=== PATIENT | female | born 1940 | race Caucasian/White ===

== ENCOUNTER 2019-03-26 16:55 | Inpatient (IN) ==
[2019-03-26] MEDS ORDERED: *HR* OxyCODONE/APAP 5/325 TABLET PO ONE (17:17)
[2019-03-26] MEDS ORDERED: 0.9 % Sodium Chloride 1,000 ML IVC SCH (18:30)
[2019-03-26 19:17] LABS: Bilirubin,Urine Negative (Negative); Blood,Urine Negative (Negative); Clarity,Urine Clear (Clear); Color,Urine Yellow (Yellow); Glucose,Urine (UA) Normal (Normal); Ketones,Urine Trace mg/dL (Negative); Leukocyte Esterase,Urine Negative (Negative); Nitrite,Urine Negative (Negative); PH,Urine 6.5 pH Units (5.0-8.0); Protein,Urine Negative (Neg-Trace); Specific Gravity,Urine 1.016 (1.010-1.025); Urobilinogen,Urine Normal (Normal)
[2019-03-26 19:19] LABS: Basophils # 0.1 K/mcL (0.0-0.2); Basophils % 0.6 %; Eosinophils # 0.1 K/mcL (0.0-0.6); Eosinophils % 0.5 %; Hematocrit 36.5 % (35.3-44.9); Hemoglobin 12.8 g/dL (11.5-15.4); Immature Granulocytes % 0.5 % (0-4); Lymphocytes # 0.9 K/mcL (0.6-4.6); Lymphocytes % 7.2 %; Mean Corpuscular HGB Conc 35.1 g/dL (31.6-35.5); Mean Corpuscular Hemoglobin 32.1 pg (28.0-33.3); Mean Corpuscular Volume 91.5 fL (83.0-100.0); Mean Platelet Volume 8.8 fL (9.4-12.4); Monocytes # 0.8 K/mcL (0.0-1.3); Monocytes % 6.9 %; Neutrophils # 10.2 K/mcL (1.6-8.9); Platelet Count 342 K/mcL (140-400); Red Blood Count 3.99 M/mcL (3.82-4.97); Red Cell Distribution Width 12.7 % (11.5-14.5); Segmented Neutrophils % 84.3 %
[2019-03-26 19:38] LABS: BUN/Creatinine Ratio 34 (6-26); Blood Urea Nitrogen 21 mg/dL (8-23); Calcium 9.6 mg/dL (8.6-10.3); Carbon Dioxide 25 mEq/L (23-29); Chloride 98 mEq/L (98-107); Glucose 128 mg/dL (70-105); Osmolality,Calculated 279 (280-300); Sodium 132 mEq/L (136-145); eGFR For African Americans > 60 (> 60); eGFR For Non-African Americans > 60 (> 60)
[2019-03-26] MEDS ORDERED: *HR* LORazepam 0.5 MG TABLET PO PRN (23:50)
[2019-03-27] MEDS ORDERED: cloNIDine HCl 0.1 MG TABLET PO SCH ×2 (00:05→21:00)
[2019-03-27] MEDS ORDERED: *HR* LORazepam 0.5 MG TABLET PO PRN ×2 (00:07→13:29)
[2019-03-27] MEDS ORDERED: *HR* OxyCODONE Immed Rel 5 MG TABLET PO PRN ×3 (02:09→13:29)
[2019-03-27] MEDS ORDERED: Acetaminophen 325 MG TABLET PO PRN (02:09)
[2019-03-27] MEDS ORDERED: Ondansetron 4 MG/2 ML VIAL IVP PRN ×3 (02:09→13:29)
[2019-03-27] MEDS ORDERED: Naloxone 0.4 MG/ML INJ IVP PRN ×3 (02:14→13:29)
[2019-03-27 05:44] LABS: Hematocrit 32.5 % (35.3-44.9); Hemoglobin 11.4 g/dL (11.5-15.4); Mean Corpuscular HGB Conc 35.1 g/dL (31.6-35.5); Mean Corpuscular Hemoglobin 32.1 pg (28.0-33.3); Mean Corpuscular Volume 91.5 fL (83.0-100.0); Platelet Count 301 K/mcL (140-400); Red Blood Count 3.55 M/mcL (3.82-4.97); Red Cell Distribution Width 12.6 % (11.5-14.5); White Blood Count 8.9 K/mcL (4.3-11.1)
[2019-03-27 05:46] LABS: INR 1.2; Prothrombin Time 13.2 Seconds (9.4-12.1)
[2019-03-27 05:49] LABS: Activated Partial Thrombo Time 27.2 Seconds (26.0-36.0)
[2019-03-27 06:01] LABS: BUN/Creatinine Ratio 30 (6-26); Blood Urea Nitrogen 20 mg/dL (8-23); Carbon Dioxide 25 mEq/L (23-29); Chloride 100 mEq/L (98-107); Cholesterol 173 mg/dL (< 200); Glucose 101 mg/dL (70-105); HDL Cholesterol 58 mg/dL (40-59); LDL Cholesterol,Calculated 101 mg/dL (0-99); Magnesium 1.8 mg/dL (1.6-2.6); Osmolality,Calculated 287 (280-300); Phosphorous 3.8 mg/dL (2.7-4.5); Sodium 137 mEq/L (136-145); Triglycerides 69 mg/dL (< 150); eGFR For African Americans > 60 (> 60); eGFR For Non-African Americans > 60 (> 60)
[2019-03-27] MEDS ORDERED: amLODIPine 5 MG TABLET PO SCH (09:00)
[2019-03-27] MEDS ORDERED: Loratadine 10 MG TABLET PO SCH ×2 (09:00)
[2019-03-27] MEDS ORDERED: Ondansetron 4 MG/2 ML VIAL IVP ONE ×2 (09:51→13:29)
[2019-03-27] MEDS ORDERED: *HR* Labetalol 20 MG/4 ML SYRINGE IVP PRN ×2 (09:51→13:29)
[2019-03-27] MEDS ORDERED: *HR* HYDROmorphone 2 MG/ML SYRINGE IVP PRN ×2 (09:51→13:29)
[2019-03-27] MEDS ORDERED: *HR* Promethazine 25 MG/ML VIAL IVP PRN ×2 (09:51→13:29)
[2019-03-27] MEDS ORDERED: Acetaminophen IV 1,000 MG/100 ML INFUS..BTL ONE (09:53)
[2019-03-27] MEDS ORDERED: Clindamycin 900 MG/50 ML 900 MG/50 ML IV.SOLN IVPB ONE ×2 (10:02→11:56)
[2019-03-27] MEDS ORDERED: *HR* Etomidate 40 MG/20 ML VIAL IVP ONE (10:28)
[2019-03-27] MEDS ORDERED: *HR* FentaNYL (PF) 100 MCG/2 ML VIAL ONE (10:28)
[2019-03-27] MEDS ORDERED: *HR* Rocuronium Bromide 50 MG/5 ML VIAL ONE (10:28)
[2019-03-27] MEDS ORDERED: Dexamethasone 4 MG/ML VIAL ONE (10:28)
[2019-03-27] MEDS ORDERED: Lidocaine HCL 4 ML Topical Solution (Laryng-O-Jet Kit Sterile Pak) TP ONE (10:28)
[2019-03-27] MEDS ORDERED: *HR* Succinylcholine 200 MG/10 ML VIAL IVP ONE (10:28)
[2019-03-27] MEDS ORDERED: Lidocaine -MPF 2% 2 ML VIAL ONE (10:28)
[2019-03-27] MEDS ORDERED: *HR* Remifentanil 1 MG VIAL IVP ONE (10:28)
[2019-03-27] MEDS ORDERED: *HR* Propofol 200 MG/20 ML VIAL IVP ONE (10:28)
[2019-03-27] MEDS ORDERED: Ondansetron 4 MG/2 ML VIAL ONE (10:28)
[2019-03-27] MEDS ORDERED: *HR* PHENYLEPHRINE 1,000 MCG/10 ML SYRINGE IVP ONE (10:35)
[2019-03-27] MEDS ORDERED: EPHEDrine 50 MG/ML VIAL ONE (10:35)
[2019-03-27] MEDS ORDERED: *HR* HYDROMORPHONE 2 MG/ML VIAL ONE (12:05)
[2019-03-27] MEDS ORDERED: Neostigmine Methylsulfate 3 MG/3 ML SYRINGE ONE (12:21)
[2019-03-27] MEDS ORDERED: Ringers Solution, Lactated 1,000 ML IVC SCH (13:29)
[2019-03-27] MEDS ORDERED: 0.9 % Sodium Chloride 1,000 ML IVC SCH (13:29)
[2019-03-27] MEDS ORDERED: MOM Conc 10 ML UD.LIQ PO PRN (13:29)
[2019-03-27] MEDS ORDERED: Sennosides 8.6 MG TABLET PO PRN (13:29)
[2019-03-27] MEDS: Clindamycin 900 MG/50 ML 900 MG/50 ML IV.SOLN IVPB SCH (16:10)
[2019-03-27] MEDS: Ascorbic Acid 500 MG TABLET PO SCH (16:16)
[2019-03-27] MEDS: Ketorolac 15 MG/ML VIAL IVP SCH (18:22)
[2019-03-27] MEDS: *HR* Enoxaparin 30 MG/0.3 ML SYRINGE SQ SCH (18:23)
[2019-03-27] MEDS: cloNIDine HCl 0.1 MG TABLET PO SCH (21:13)
[2019-03-28] MEDS: Clindamycin 900 MG/50 ML 900 MG/50 ML IV.SOLN IVPB SCH (00:23)
[2019-03-28] MEDS: Ketorolac 15 MG/ML VIAL IVP SCH ×4 (00:26→11:26)
[2019-03-28 03:06] LABS: Basophils % 0.1 %; Hematocrit 24.4 % (35.3-44.9); Immature Granulocytes % 0.4 % (0-4); Lymphocytes # 0.7 K/mcL (0.6-4.6); Lymphocytes % 7.8 %; Mean Corpuscular HGB Conc 35.2 g/dL (31.6-35.5); Mean Corpuscular Hemoglobin 32.7 pg (28.0-33.3); Mean Corpuscular Volume 92.8 fL (83.0-100.0); Mean Platelet Volume 9.1 fL (9.4-12.4); Monocytes # 0.8 K/mcL (0.0-1.3); Monocytes % 8.5 %; Neutrophils # 7.5 K/mcL (1.6-8.9); Platelet Count 228 K/mcL (140-400); Red Blood Count 2.63 M/mcL (3.82-4.97); Red Cell Distribution Width 12.5 % (11.5-14.5); Segmented Neutrophils % 83.2 %
[2019-03-28 03:14] LABS: BUN/Creatinine Ratio 32 (6-26); Blood Urea Nitrogen 20 mg/dL (8-23); Calcium 8.4 mg/dL (8.6-10.3); Carbon Dioxide 24 mEq/L (23-29); Chloride 101 mEq/L (98-107); Glucose 142 mg/dL (70-105); Osmolality,Calculated 279 (280-300); Potassium 4.1 mEq/L (3.5-5.1); Sodium 132 mEq/L (136-145); eGFR For African Americans > 60 (> 60); eGFR For Non-African Americans > 60 (> 60)
[2019-03-28 03:16] LABS: Hemoglobin 8.6 g/dL (11.5-15.4)
[2019-03-28] MEDS: *HR* Enoxaparin 30 MG/0.3 ML SYRINGE SQ SCH ×2 (05:25→19:23)
[2019-03-28] MEDS: amLODIPine 5 MG TABLET PO SCH (09:13)
[2019-03-28] MEDS: Loratadine 10 MG TABLET PO SCH (09:14)
[2019-03-28] MEDS: Ascorbic Acid 500 MG TABLET PO SCH ×2 (09:14→16:11)
[2019-03-28] MEDS: Multivit/Ca/Min/Fe/FA 1 TAB TABLET PO SCH (09:14)
[2019-03-28] MEDS: *HR* OxyCODONE Immed Rel 5 MG TABLET PO PRN ×2 (16:11→22:04)
[2019-03-28 16:59] LABS: Hematocrit 25.8 % (35.3-44.9); Hemoglobin 9.1 g/dL (11.5-15.4)
[2019-03-28] MEDS: cloNIDine HCl 0.1 MG TABLET PO SCH (19:39)
[2019-03-29 02:12] LABS: Basophils # 0.1 K/mcL (0.0-0.2); Basophils % 0.7 %; Eosinophils # 0.4 K/mcL (0.0-0.6); Hematocrit 22.6 % (35.3-44.9); Hemoglobin 7.7 g/dL (11.5-15.4); Immature Granulocytes % 0.8 % (0-4); Lymphocytes # 2.7 K/mcL (0.6-4.6); Lymphocytes % 30.8 %; Mean Corpuscular HGB Conc 34.1 g/dL (31.6-35.5); Mean Corpuscular Hemoglobin 32.5 pg (28.0-33.3); Mean Corpuscular Volume 95.4 fL (83.0-100.0); Mean Platelet Volume 9.2 fL (9.4-12.4); Monocytes # 0.9 K/mcL (0.0-1.3); Monocytes % 10.4 %; Neutrophils # 4.6 K/mcL (1.6-8.9); Platelet Count 218 K/mcL (140-400); Red Blood Count 2.37 M/mcL (3.82-4.97); Red Cell Distribution Width 12.8 % (11.5-14.5); Segmented Neutrophils % 52.3 %; White Blood Count 8.9 K/mcL (4.3-11.1)
[2019-03-29 02:35] LABS: BUN/Creatinine Ratio 42 (6-26); Blood Urea Nitrogen 24 mg/dL (8-23); Calcium 8.1 mg/dL (8.6-10.3); Carbon Dioxide 25 mEq/L (23-29); Chloride 98 mEq/L (98-107); Glucose 97 mg/dL (70-105); Osmolality,Calculated 278 (280-300); Potassium 4.1 mEq/L (3.5-5.1); Sodium 132 mEq/L (136-145); eGFR For African Americans > 60 (> 60); eGFR For Non-African Americans > 60 (> 60)
[2019-03-29 02:37] LABS: Magnesium 1.6 mg/dL (1.6-2.6)
[2019-03-29 02:58] LABS: Folate 13.1 ng/mL (3.0-16.0)
[2019-03-29] MEDS: *HR* Enoxaparin 30 MG/0.3 ML SYRINGE SQ SCH ×2 (05:04→17:23)
[2019-03-29] MEDS: amLODIPine 5 MG TABLET PO SCH (07:45)
[2019-03-29] MEDS: Multivit/Ca/Min/Fe/FA 1 TAB TABLET PO SCH (07:46)
[2019-03-29] MEDS: Ascorbic Acid 500 MG TABLET PO SCH ×2 (07:46→17:22)
[2019-03-29] MEDS: Loratadine 10 MG TABLET PO SCH (07:46)
[2019-03-29] MEDS: *HR* OxyCODONE Immed Rel 5 MG TABLET PO PRN (07:46)
[2019-03-29] MEDS ORDERED: 0.9 % Sodium Chloride 250 ML IVC SCH (08:15)
[2019-03-29] MEDS ORDERED: Naloxone 0.4 MG/ML INJ ONE (08:40)
[2019-03-29] MEDS ORDERED: *HR* OxyCODONE Immed Rel 5 MG TABLET PO PRN (08:51)
[2019-03-29] MEDS ORDERED: NON-FORMULARY MEDICATION 1 EACH EACH (Mv-Min/Fa/Vit K/Lycop/Lut/Zeax [Ocuvite Eye Plus Mul PO SCH (09:00)
[2019-03-29 09:38] LABS: Basophils # 0.1 K/mcL (0.0-0.2); Basophils % 0.8 %; Eosinophils # 0.5 K/mcL (0.0-0.6); Eosinophils % 4.6 %; Hematocrit 27.8 % (35.3-44.9); Lymphocytes % 17.4 %; Mean Corpuscular HGB Conc 34.2 g/dL (31.6-35.5); Mean Corpuscular Volume 93.6 fL (83.0-100.0); Mean Platelet Volume 9.3 fL (9.4-12.4); Monocytes # 1.3 K/mcL (0.0-1.3); Monocytes % 10.8 %; Neutrophils # 7.7 K/mcL (1.6-8.9); Platelet Count 292 K/mcL (140-400); Red Blood Count 2.97 M/mcL (3.82-4.97); Red Cell Distribution Width 12.7 % (11.5-14.5); Segmented Neutrophils % 65.4 %; White Blood Count 11.7 K/mcL (4.3-11.1)
[2019-03-29 09:40] LABS: Hemoglobin 9.5 g/dL (11.5-15.4)
[2019-03-29 09:46] LABS: Magnesium 1.7 mg/dL (1.6-2.6)
[2019-03-29 09:47] LABS: Troponin I 0.03 ng/mL (< 0.04)
[2019-03-29] MEDS: cloNIDine HCl 0.1 MG TABLET PO SCH (22:28)
[2019-03-29] MEDS ORDERED: hydrALAZINE 10 MG TABLET PO PRN (22:34)
[2019-03-30] MEDS: *HR* Enoxaparin 30 MG/0.3 ML SYRINGE SQ SCH (05:44)
[2019-03-30 05:46] LABS: Basophils # 0.1 K/mcL (0.0-0.2); Basophils % 0.8 %; Eosinophils # 0.5 K/mcL (0.0-0.6); Eosinophils % 5.3 %; Hematocrit 23.6 % (35.3-44.9); Hemoglobin 8.1 g/dL (11.5-15.4); Immature Granulocytes % 1.6 % (0-4); Lymphocytes # 1.8 K/mcL (0.6-4.6); Lymphocytes % 19.7 %; Mean Corpuscular HGB Conc 34.3 g/dL (31.6-35.5); Mean Corpuscular Hemoglobin 32.4 pg (28.0-33.3); Mean Corpuscular Volume 94.4 fL (83.0-100.0); Mean Platelet Volume 8.9 fL (9.4-12.4); Neutrophils # 5.6 K/mcL (1.6-8.9); Platelet Count 242 K/mcL (140-400); Red Cell Distribution Width 12.5 % (11.5-14.5); Segmented Neutrophils % 61.6 %; White Blood Count 9.1 K/mcL (4.3-11.1)
[2019-03-30 05:59] LABS: BUN/Creatinine Ratio 34 (6-26); Blood Urea Nitrogen 14 mg/dL (8-23); Carbon Dioxide 25 mEq/L (23-29); Chloride 98 mEq/L (98-107); Glucose 117 mg/dL (70-105); Magnesium 1.7 mg/dL (1.6-2.6); Osmolality,Calculated 274 (280-300); Potassium 3.8 mEq/L (3.5-5.1); Sodium 131 mEq/L (136-145); eGFR For African Americans > 60 (> 60); eGFR For Non-African Americans > 60 (> 60)
[2019-03-30] MEDS: Ascorbic Acid 500 MG TABLET PO SCH (07:51)
[2019-03-30] MEDS: amLODIPine 5 MG TABLET PO SCH (07:51)
[2019-03-30] MEDS: Acetaminophen 325 MG TABLET PO PRN ×2 (07:51→13:55)
[2019-03-30] MEDS: Multivit/Ca/Min/Fe/FA 1 TAB TABLET PO SCH (07:52)
[2019-03-30] MEDS: Loratadine 10 MG TABLET PO SCH (07:52)
[2019-03-30 16:17] VITALS: BP 146/70
== END 2019-03-30 18:04 | DRG 469 ==
LOC: 3NENU 16:55 → EMEROOARM 16:55 → 3NENU 21:30 → SUATTDRO 03-27 01:58
PROVIDERS: ADMIT Pharmacist; ATTEND Pharmacist

== ENCOUNTER 2019-12-26 17:58 | Observation (INO) ==
[2019-12-26] MEDS ORDERED: *HR* OxyCODONE/APAP 5/325 TABLET PO ONE (18:11)
[2019-12-26] MEDS ORDERED: 0.9 % Sodium Chloride 1,000 ML IVC ONE (18:11)
[2019-12-26 18:26] LABS: Basophils # 0.1 K/mcL (0.0-0.2); Basophils % 0.6 %; Hematocrit 33.7 % (35.3-44.9); Hemoglobin 11.6 g/dL (11.5-15.4); Immature Granulocytes % 0.5 % (0-4); Lymphocytes # 0.7 K/mcL (0.6-4.6); Lymphocytes % 6.1 %; Mean Corpuscular HGB Conc 34.4 g/dL (31.6-35.5); Mean Corpuscular Volume 92.8 fL (83.0-100.0); Mean Platelet Volume 8.6 fL (9.4-12.4); Monocytes # 1.1 K/mcL (0.0-1.3); Monocytes % 9.3 %; Platelet Count 385 K/mcL (140-400); Red Blood Count 3.63 M/mcL (3.82-4.97); Red Cell Distribution Width 12.8 % (11.5-14.5); Segmented Neutrophils % 83.5 %
[2019-12-26 18:34] LABS: INR 1.1; Prothrombin Time 12.1 Seconds (9.4-12.1)
[2019-12-26 18:46] LABS: BUN/Creatinine Ratio 50 (6-26); Blood Urea Nitrogen 28 mg/dL (8-23); Carbon Dioxide 25 mEq/L (23-29); Chloride 97 mEq/L (98-107); Sodium 132 mEq/L (136-145); eGFR For African Americans > 60 (> 60)
[2019-12-26 18:47] LABS: Alanine Aminotransferase 14 Units/L (7-52); Albumin 4.4 g/dL (3.5-5.7); Albumin/Globulin Ratio 1.8 (1.1-2.2); Alkaline Phosphatase 60 Units/L (34-104); Aspartate Amino Transferase 17 Units/L (13-39); Bilirubin,Direct 0.1 mg/dL (0.0-0.2); Bilirubin,Indirect 0.5 mg/dL (0.0-1.0); Bilirubin,Total 0.6 mg/dL (0.3-1.0); Creatine Kinase 202 Units/L (30-223); Globulin 2.4 g/dL (2.4-3.5); Glucose 134 mg/dL (70-105); Magnesium 1.9 mg/dL (1.6-2.6); Osmolality,Calculated 281 (280-300); Total Protein 6.8 g/dL (6.4-8.9); Troponin I 0.03 ng/mL (< 0.04); eGFR For Non-African Americans > 60 (> 60)
[2019-12-26 19:37] LABS: Bilirubin,Urine Negative (Negative); Blood,Urine Negative (Negative); Clarity,Urine Clear (Clear); Color,Urine Light-Yellow (Yellow); Glucose,Urine (UA) Normal (Normal); Ketones,Urine 20 mg/dL (Negative); Leukocyte Esterase,Urine Negative (Negative); Nitrite,Urine Negative (Negative); Protein,Urine Trace mg/dL (Neg-Trace); Specific Gravity,Urine 1.019 (1.010-1.025); Urobilinogen,Urine Normal (Normal)
[2019-12-26] MEDS ORDERED: Naloxone 0.4 MG/ML INJ IVP PRN (20:21)
[2019-12-26] MEDS ORDERED: Ondansetron 4 MG/2 ML VIAL IVP PRN (20:21)
[2019-12-26] MEDS ORDERED: Loratadine 10 MG TABLET PO PRN (20:48)
[2019-12-26] MEDS ORDERED: polyethylene glycoL 3350 17 GM POWD.PACK PO PRN (20:48)
[2019-12-26] MEDS: 0.9 % Sodium Chloride 1,000 ML IVC SCH (22:09)
[2019-12-26] MEDS ORDERED: Perflutren Lipid Microsphere 1.3 ML in 0.9 % Sodium Chloride 8.7 ML IVP PRN (22:38)
[2019-12-26] MEDS ORDERED: *HR* OxyCODONE/APAP 10/325 TABLET PO PRN (23:44)
[2019-12-26] MEDS ORDERED: *HR* OxyCODONE/APAP 5/325 TABLET PO PRN (23:44)
[2019-12-27] MEDS ORDERED: *HR* Enoxaparin 40 MG/0.4 ML SYRINGE SQ SCH (06:00)
[2019-12-27] MEDS: amLODIPine 5 MG TABLET PO SCH (08:51)
[2019-12-27] MEDS: 0.9 % Sodium Chloride 1,000 ML IVC SCH (08:54)
[2019-12-27] MEDS: Acetaminophen 325 MG TABLET PO PRN ×2 (12:15→22:23)
[2019-12-27 13:48] LABS: Basophils # 0.1 K/mcL (0.0-0.2); Basophils % 1.1 %; Eosinophils # 0.1 K/mcL (0.0-0.6); Eosinophils % 1.8 %; Hematocrit 24.5 % (35.3-44.9); Immature Granulocytes % 0.4 % (0-4); Lymphocytes # 0.9 K/mcL (0.6-4.6); Lymphocytes % 12.5 %; Mean Corpuscular HGB Conc 33.5 g/dL (31.6-35.5); Mean Corpuscular Hemoglobin 31.4 pg (28.0-33.3); Mean Corpuscular Volume 93.9 fL (83.0-100.0); Monocytes # 0.8 K/mcL (0.0-1.3); Monocytes % 10.8 %; Neutrophils # 5.4 K/mcL (1.6-8.9); Platelet Count 289 K/mcL (140-400); Red Blood Count 2.61 M/mcL (3.82-4.97); Red Cell Distribution Width 13.2 % (11.5-14.5); Segmented Neutrophils % 73.4 %; White Blood Count 7.3 K/mcL (4.3-11.1)
[2019-12-27 13:52] LABS: Hemoglobin 8.2 g/dL (11.5-15.4)
[2019-12-27 13:57] LABS: INR 1.2; Prothrombin Time 13.2 Seconds (9.4-12.1)
[2019-12-27 14:09] LABS: BUN/Creatinine Ratio 38 (6-26); Blood Urea Nitrogen 30 mg/dL (8-23); Calcium 8.2 mg/dL (8.6-10.3); Carbon Dioxide 21 mEq/L (23-29); Chloride 105 mEq/L (98-107); Glucose 126 mg/dL (70-105); Osmolality,Calculated 284 (280-300); Potassium 3.6 mEq/L (3.5-5.1); Sodium 133 mEq/L (136-145); eGFR For African Americans > 60 (> 60); eGFR For Non-African Americans > 60 (> 60)
[2019-12-27] MEDS ORDERED: Isovue-370 500 ML BOTTLE IVP ONE (16:07)
[2019-12-27 18:10] LABS: Hematocrit 27.6 % (35.3-44.9); Hemoglobin 9.1 g/dL (11.5-15.4)
[2019-12-27 18:29] LABS: % Iron Saturation 12 % (15-50); Iron 27 mcg/dL (50-170); Transferrin 160 mg/dL (203-362)
[2019-12-27 18:47] LABS: Ferritin 193 ng/mL (10-120)
[2019-12-27 18:53] LABS: Folate 10.9 ng/mL (3.0-16.0)
[2019-12-28 06:21] LABS: Hematocrit 24.7 % (35.3-44.9); Hemoglobin 8.2 g/dL (11.5-15.4); Mean Corpuscular HGB Conc 33.2 g/dL (31.6-35.5); Mean Corpuscular Hemoglobin 31.5 pg (28.0-33.3); Mean Platelet Volume 8.9 fL (9.4-12.4); Platelet Count 266 K/mcL (140-400); Red Cell Distribution Width 13.2 % (11.5-14.5); White Blood Count 7.2 K/mcL (4.3-11.1)
[2019-12-28 06:46] LABS: BUN/Creatinine Ratio 37 (6-26); Blood Urea Nitrogen 19 mg/dL (8-23); Calcium 8.4 mg/dL (8.6-10.3); Carbon Dioxide 23 mEq/L (23-29); Chloride 104 mEq/L (98-107); Glucose 99 mg/dL (70-105); Osmolality,Calculated 276 (280-300); Potassium 3.5 mEq/L (3.5-5.1); Sodium 132 mEq/L (136-145); eGFR For African Americans > 60 (> 60); eGFR For Non-African Americans > 60 (> 60)
[2019-12-28] MEDS: amLODIPine 5 MG TABLET PO SCH (08:14)
[2019-12-28 12:08] LABS: Hematocrit 25.9 % (35.3-44.9); Hemoglobin 8.5 g/dL (11.5-15.4)
[2019-12-28] MEDS: *HR* LORazepam 0.5 MG TABLET PO PRN (21:30)
[2019-12-28 21:46] LABS: Hematocrit 23.5 % (35.3-44.9); Hemoglobin 7.7 g/dL (11.5-15.4)
[2019-12-28] MEDS: Acetaminophen 325 MG TABLET PO PRN (22:10)
[2019-12-29 03:07] LABS: Hematocrit 21.8 % (35.3-44.9); Hemoglobin 7.2 g/dL (11.5-15.4); Mean Corpuscular Hemoglobin 31.6 pg (28.0-33.3); Mean Corpuscular Volume 95.6 fL (83.0-100.0); Platelet Count 258 K/mcL (140-400); Red Blood Count 2.28 M/mcL (3.82-4.97); Red Cell Distribution Width 13.3 % (11.5-14.5); White Blood Count 5.5 K/mcL (4.3-11.1)
[2019-12-29 03:20] LABS: BUN/Creatinine Ratio 34 (6-26); Blood Urea Nitrogen 18 mg/dL (8-23); Calcium 8.1 mg/dL (8.6-10.3); Carbon Dioxide 24 mEq/L (23-29); Chloride 104 mEq/L (98-107); Glucose 88 mg/dL (70-105); Osmolality,Calculated 277 (280-300); Potassium 3.6 mEq/L (3.5-5.1); Sodium 133 mEq/L (136-145); eGFR For African Americans > 60 (> 60); eGFR For Non-African Americans > 60 (> 60)
[2019-12-29] MEDS ORDERED: Regadenoson 0.4 MG/5 ML SYRINGE IVP ONE (06:11)
[2019-12-29] MEDS: *HR* OxyCODONE/APAP 10/325 TABLET PO PRN (06:45)
[2019-12-29] MEDS: amLODIPine 5 MG TABLET PO SCH (09:20)
[2019-12-29 09:28] LABS: Hematocrit 24.3 % (35.3-44.9); Hemoglobin 7.9 g/dL (11.5-15.4)
[2019-12-29] MEDS: *HR* LORazepam 0.5 MG TABLET PO PRN ×2 (10:27→22:12)
[2019-12-29] MEDS: Acetaminophen 325 MG TABLET PO PRN (22:11)
[2019-12-30] MEDS: *HR* OxyCODONE/APAP 5/325 TABLET PO PRN ×2 (05:18→22:29)
[2019-12-30 05:30] LABS: Hematocrit 23.8 % (35.3-44.9); Hemoglobin 7.9 g/dL (11.5-15.4); Mean Corpuscular HGB Conc 33.2 g/dL (31.6-35.5); Mean Corpuscular Hemoglobin 32.2 pg (28.0-33.3); Mean Corpuscular Volume 97.1 fL (83.0-100.0); Platelet Count 301 K/mcL (140-400); Red Blood Count 2.45 M/mcL (3.82-4.97); Red Cell Distribution Width 13.5 % (11.5-14.5); White Blood Count 5.3 K/mcL (4.3-11.1)
[2019-12-30 05:54] LABS: BUN/Creatinine Ratio 31 (6-26); Blood Urea Nitrogen 15 mg/dL (8-23); Calcium 8.7 mg/dL (8.6-10.3); Carbon Dioxide 25 mEq/L (23-29); Chloride 106 mEq/L (98-107); Glucose 92 mg/dL (70-105); Osmolality,Calculated 280 (280-300); Potassium 3.8 mEq/L (3.5-5.1); Sodium 135 mEq/L (136-145); eGFR For African Americans > 60 (> 60); eGFR For Non-African Americans > 60 (> 60)
[2019-12-30] MEDS: amLODIPine 5 MG TABLET PO SCH (10:32)
[2019-12-30] MEDS: *HR* LORazepam 0.5 MG TABLET PO PRN (10:39)
[2019-12-30] MEDS: *HR* OxyCODONE/APAP 10/325 TABLET PO PRN (13:25)
[2019-12-31] MEDS: *HR* LORazepam 0.5 MG TABLET PO PRN ×2 (08:37→22:03)
[2019-12-31] MEDS: amLODIPine 5 MG TABLET PO SCH (08:37)
[2019-12-31] MEDS: Acetaminophen 325 MG TABLET PO PRN ×2 (15:41→22:02)
[2020-01-01] MEDS: *HR* OxyCODONE/APAP 5/325 TABLET PO PRN (05:28)
[2020-01-01 06:48] LABS: Hematocrit 26.3 % (35.3-44.9); Hemoglobin 8.5 g/dL (11.5-15.4); Mean Corpuscular HGB Conc 32.3 g/dL (31.6-35.5); Mean Corpuscular Hemoglobin 31.5 pg (28.0-33.3); Mean Corpuscular Volume 97.4 fL (83.0-100.0); Mean Platelet Volume 8.9 fL (9.4-12.4); Platelet Count 388 K/mcL (140-400); White Blood Count 6.4 K/mcL (4.3-11.1)
[2020-01-01 07:09] LABS: BUN/Creatinine Ratio 36 (6-26); Blood Urea Nitrogen 16 mg/dL (8-23); Calcium 8.8 mg/dL (8.6-10.3); Carbon Dioxide 24 mEq/L (23-29); Chloride 103 mEq/L (98-107); Glucose 98 mg/dL (70-105); Osmolality,Calculated 281 (280-300); Potassium 3.9 mEq/L (3.5-5.1); Sodium 135 mEq/L (136-145); eGFR For African Americans > 60 (> 60); eGFR For Non-African Americans > 60 (> 60)
[2020-01-01] MEDS: amLODIPine 5 MG TABLET PO SCH (08:55)
[2020-01-01] MEDS: *HR* LORazepam 0.5 MG TABLET PO PRN (08:56)
[2020-01-01 11:08] VITALS: BP 145/78
[2020-01-01] MEDS: *HR* OxyCODONE/APAP 10/325 TABLET PO PRN (13:46)
== END 2020-01-01 14:02 ==
LOC: 3ANU 17:58 → EMEROOARM 17:58 → SUATTDRO 20:28 → 3ANU 20:58
PROVIDERS: ADMIT Family Medicine; ATTEND Family Medicine